=== PATIENT | male | born 1970 | race Caucasian/White ===

== ENCOUNTER 2023-10-02 06:58 | Emergency (ER) | payer OTHER, SELFPAY ==
[2023-10-02 07:06] VITALS: BP 158/95
[2023-10-02 07:43] VITALS: BMI 31.5
[2023-10-02 07:45] LABS: % Basophils 0.6 % (0-2); % Eosinophils 1.7 % (0-6); % Immature Granulocytes 0.8 % (0-0.5); % Lymphocytes 36.7 % (20.5-51.1); % Monocytes 6.3 % (1.7-9.3); % Neutrophils 53.9 % (42.2-75.2); Absolute Eosinophils 0.1 10^3/uL (0-0.7); Absolute Immature Granulocytes 0.1 10^3/uL (0-0.05); Absolute Lymphocytes 2.6 10^3/uL (1.2-3.4); Absolute Monocytes 0.5 10^3/uL (0.1-0.6); Absolute Neutrophils 3.8 10^3/uL (1.4-6.5); Hematocrit 36.4 % (39.0-52.0); Hemoglobin 12.3 g/dL (13.0-18.0); Mean Corp Hgb Conc. 33.8 g/dL (33.0-37.0); Mean Corpuscular Hgb 29.9 pg (27.0-31.0); Mean Corpuscular Volume 88.6 fL (80.0-94.0); Mean Platelet Volume 10.2 fL (7.4-10.4); Nucleated Red Blood Cells % 0 % (-); Platelet Count 183 10^3/uL (130-400); Red Blood Cell Count 4.11 10^6/uL (4.70-6.10); Red Cell Dist. Width 12.6 % (11.5-14.5); White Blood Cell Count 7.1 10^3/uL (4.8-10.8)
[2023-10-02] MEDS: ZOFRAN 4 MG IV (07:46)
[2023-10-02] MEDS: TORADOL 15 MG IV (07:46)
[2023-10-02] MEDS: NSS 1000 IV (07:46)
--- NOTE | 2023-10-02 07:49 | ED.GENMED ---
History of Present Illness
General
Chief Complaint: Flank Pain
Source: patient
Exam Limitations: none
Time Seen by Provider: 10/02/23 07:35
Nursing documentation reviewed up to this point in time: agreed with
Travel History
Have you had any contact with someone who has COVID-19?: No
Do you have any symptoms of coronavirus? Fever > 100 degrees, chills, cough, shortness of breath, sore throat, loss of taste or smell, muscle aches, or headache?: No
History of Present Illness
History of Present Illness:
53-year-old male presents to the emergency department complaining of difficulty urinating, and right flank pain. He took Tylenol this morning for the pain. Denies any fevers. He vomited once.
Past History
Past History
ED Past Medical History: None
ED Past Surgical History: None
Social History
Tobacco: Non-smoker
Alcohol: None
Drug: None
Personal:
Living: with family
Review of Systems
Review of Systems
Allergies reviewed?: Yes
All Other Systems: Not applicable
Constitutional: Reports no symptoms; Denies fever
EENT: Reports no symptoms
Respiratory: Reports no symptoms
Cardiac: Reports no symptoms
ABD/GI: Reports vomiting
: Reports flank pain and urgency
Musculoskeletal: Reports no symptoms
Skin: Reports no symptoms
Neurological: Reports no symptoms
Endocrine: Reports no symptoms
Hematologic/Lymphatic: Reports no symptoms
Psychiatric: Reports no symptoms
Phy Exam
Physical Exam
Physical Exam:
Physical Exam
General: no apparent distress, not acutely ill
Neck: supple. no meningeal signs. normal posterior pharynx
Heart: s1/s2 regular rate and rhythm, no murmur. equal radial
pulses.
HEENT: Pupils equal round reactive to light, EOMI
Lungs: no acute respiratory distress. clear bilaterally
Abdomen: normal bowel sounds. not tender. no CVAT
Neuro: alert and oriented. no focal neurological deficits cranial nerves II through XII intact
Skin: no rash
Psychiatric: well kept. interactive and cooperative
Extremities: no edema. no calf tenderness. negative homans. good distal pulses
Course
Orders/Labs/Results
Orders:
Orders
10/02/23 07:35
IV Insert/Care/Rem.- Treatment PRN
0.9% Sodium Chloride 1000 ml [Nss] 1,000 ml IV BOLUS
Ketorolac [Toradol] 15 mg IV NOW STA
Ondansetron Injectable [Zofran] 4 mg IV NOW STA
10/02/23 07:36
Ketorolac [Toradol] 15 mg .ROUTE .STK-MED ONE
Ondansetron Injectable [Zofran] 4 mg .ROUTE .STK-MED ONE
10/02/23 07:40
Complete Blood Count/With Diff Urgent
Comprehensive Metabolic Panel Urgent
Lipase Urgent
Urinalysis Reflex To Culture Urgent
Date Specimen was Collected: 10/02/23
Time Specimen was Collected: 07:34
Urine Microscopic Reflex Cult Urgent
10/02/23 07:48
CT Abd/pel Without Iv Or Oral Urgent
Comment:
Reason For Exam: right flank pain since 5 am
Abnormal Lab Results
10/02/23
07:40
RBC 4.11 L 10^6/uL
(4.70-6.10)
Hgb 12.3 L g/dL
(13.0-18.0)
Hct 36.4 L %
(39.0-52.0)
Abs Immat Gran (auto) 0.1 H 10^3/uL
(0-0.05)
Immature Gran % 0.8 H %
(0-0.5)
BUN 24 H mg/dl
(9-20)
Glucose 121 H mg/dl
(70-99)
Urine Ketones Trace A
(Negative)
Ur Occult Blood Reflex 1+ A
(Negative)
Urine Bilirubin 1+ A
(Negative)
Leukocyte Esterase Rfl Trace A
(Negative)
Urine RBC 3-6 A /HPF
(0-2)
Urine Bacteria (Reflex) Few A
(Negative)
10/02/23 07:40
10/02/23 07:40
Vital Signs
Initial and Last Documented VS:
Initial Vital Signs
Temp Pulse Resp BP Pulse Ox
97.5 F 64 18 158/95 99
10/02/23 07:06 10/02/23 07:06 10/02/23 07:06 10/02/23 07:06 10/02/23 07:06
Last Documented Vital Signs
Temp Pulse Resp BP Pulse Ox
97.5 F 64 18 158/95 99
10/02/23 07:06 10/02/23 07:06 10/02/23 07:06 10/02/23 07:06 10/02/23 07:06
MDM/Problems Addressed
Differential Diagnosis Includes:
Urinary tract infection, ureteral calculus
MDM/Problems Addressed:
53-year-old male with 0.3 cm calculus at right UVJ. Pain controlled in ED. No signs of UTI. Stable for follow-up with urology.
Chronic conditions affecting care: HTN
Acute Exacerbation and/or Progression of Chronic Illness: HTN
*Radiology
Radiology exam reviewed: radiology read reviewed (CT scan shows right ureteral calculus at UVJ with associated hydroureteronephrosis)
*Pulse Oximetry
Patient hypoxic: no
*EKG
Interpreted by ED Provider?: NA
*Carpet Yarn Winder Operator Interpretation
Rate: Carpet Yarn Winder Operator- N/A
*Critical Care Note
Total Time (30-74mins, 75-104mins- exclusive of procedures): Not Applicable
Patient Management
Social determinants of health affecting care: Living situation
Escalation/DeEscalation of care consider admission/obs:
Admit not indicated
ED Attending Note
-
Portions of this chart may have been created with voice recognition software.� Occasional wrong word or��sound alike� substitutions may have occurred due to the inherent limitations of voice recognition software.
Discharge Plan
Departure
Patient Disposition: Home (Routine Discharge)
Date of Disposition: 10/02/23
Time of Disposition: 10:07
Patient with high blood pressure during this ER visit?: Yes
Condition: Good
Discharge Problem:
Calculus of distal right ureter
Instructions: Renal Colic (DC), How to Strain Your Urine, BLOOD PRESSURE
Prescriptions:
No Action
No Current Medications
0
Referrals:
Eran Siegel DO [Family Provider] -
Gabriel Terrell MD [Active] - Call in 1-3 days for appt
Interventions
Interventions:
*Risk Screen - Suicide Last Done: 10/02/23 07:43
*General Assessment Last Done: 10/02/23 07:43
*Neglect/Abuse Screening Last Done: 10/02/23 07:43
ED- Fall Risk Assessment Last Done: 10/02/23 07:43
*ED COVID-19 Vaccine History Last Done: 10/02/23 07:06
CD-Vzoisq-Tcsyxalzzv Assessment Last Done: 10/02/23 07:43
ED-Male Genitourinary Assessment Last Done: 10/02/23 07:43
Discharge Date and Time
Print Language: CZECH
[2023-10-02 07:58] LABS: ALT (SGPT) 36 U/L (0-50); AST (SGOT) 34 U/L (17-59); Albumin 4.4 g/dl (3.5-5.0); Alkaline Phosphatase 73 U/L (38-126); Blood Urea Nitrogen 24 mg/dl (9-20); Calcium 9.1 mg/dl (8.4-10.2); Carbon Dioxide 26 mmol/L (22-30); Chloride 106 mmol/L (98-107); Estimated Creatinine Clearance 72 ml/min; Glucose 121 mg/dl (70-99); Lipase 68 U/L (23-300); Potassium 4.2 mmol/L (3.5-5.1); Sodium 139 mmol/L (135-145); Total Bilirubin 0.4 mg/dl (0.2-1.3); Urine Albumin Trace (Neg - Trace); Urine Bilirubin 1+ (Negative); Urine Character Clear (Clear); Urine Color Yellow; Urine Glucose Negative (Negative); Urine Ketone Trace (Negative); Urine Leukocyte Trace (Negative); Urine Nitrite Negative (Negative); Urine Occult Blood 1+ (Negative); Urine Specific Gravity 1.025 (<1.030); Urine Urobilinogen Negative (Neg - 1+); eGFR > 60.00
[2023-10-02 08:13] LABS: Urine Mucus Moderate
[2023-10-02 08:14] LABS: Urine Bacteria Few (Negative); Urine White Cell 0-2 /HPF (0-5)
== END 2023-10-02 10:18 | disposition home or self-care (01) ==
LOC: EMR 06:58
PROVIDERS: EMERGENCY PHYSICIAN Emergency Medicine; FAMILY PHYSICIAN Student in an Organized Health Care Education/Training Program
DX: N13.2 Hydronephrosis with renal and ureteral calculous obstruction (principal); I10 Essential (primary) hypertension
CPT/HCPCS: 99284; 96374; 96375; 74176; 80053; 81003; 81015; 83690; 85025

== ENCOUNTER → 2024-08-28 06:58 | Outpatient (REF) | payer OTHER, SELFPAY | LOC: HWRCS 06:58 | PROVIDERS: ATTENDING PHYSICIAN Internal Medicine Cardiovascular Disease; FAMILY PHYSICIAN Student in an Organized Health Care Education/Training Program | DX: R06.09 Other forms of dyspnea (principal); I10 Essential (primary) hypertension; E78.1 Pure hyperglyceridemia | CPT/HCPCS: 93306 ==

== ENCOUNTER → 2024-08-30 13:19 | Outpatient (REF) | payer OTHER, SELFPAY | LOC: RCS 13:19 | PROVIDERS: ATTENDING PHYSICIAN Internal Medicine Cardiovascular Disease; FAMILY PHYSICIAN Student in an Organized Health Care Education/Training Program | DX: R06.09 Other forms of dyspnea (principal); I10 Essential (primary) hypertension; E78.1 Pure hyperglyceridemia | CPT/HCPCS: 93017 ==